=== PATIENT | female | born 1985 | race Caucasian/White ===

== ENCOUNTER 2022-04-16 19:13 | Emergency (ER) | payer MEDICAID ==
[~2022-04-16] VITALS: Ht 165.1 cm; Wt 81.8 kg
[2022-04-16] MEDS ORDERED: IBUPROFEN 600 MG TABLET PO ONE (20:45)
[2022-04-16] MEDS ORDERED: ACETAMINOPHEN 500 MG TABLET PO ONE (20:45)
[2022-04-16 21:29] LABS: COVID AG,FIA SOURCE NASOPHARYNGEAL
[2022-04-16 21:58] LABS: INFLUENZA TYPE A NEGATIVE FOR TYPE A (NEGATIVE); INFLUENZA TYPE B NEGATIVE FOR TYPE B (NEGATIVE)
[2022-04-16 22:00] VITALS: BP 124/65
[2022-04-16] MEDS ORDERED: IBUP-2070 PO (22:48)
[2022-04-16] MEDS ORDERED: ACET-3385 PO (22:49)
== END 2022-04-17 04:36 | disposition home or self-care (01) ==
LOC: EMS 19:21
DX: U07.1 COVID-19 (principal); Z98.890 Other specified postprocedural states
CPT/HCPCS: 87804; 99283

== ENCOUNTER 2023-06-23 19:06 | Emergency (ER) | payer MEDICAID, OTHER ==
[~2023-06-23] VITALS: Ht 157.5 cm; Wt 63.6 kg
[~2023-06-23 19:06] MED LIST: ACET-3385 PO; IBUP-1492 PO
[2023-06-23 19:17] VITALS: TEMP 98.7
[2023-06-23 20:39] LABS: APPEARANCE,URINE HAZY (CLEAR); BILIRUBIN,URINE NEGATIVE (NEGATIVE); GLUCOSE, URINE (UA) NEGATIVE (NEGATIVE); LEUKOCYTE ESTERASE ,URINE LARGE (NEGATIVE); NITRATE,URINE NEGATIVE (NEGATIVE); OCCULT BLOOD,URINE LARGE (NEGATIVE); PROTEIN,URINE 100-200,SEE CONFIRM mg/dL (NEGATIVE); SPECIFIC GRAVITIY, URINE 1.017 (1.003-1.030); UROBILINOGEN,URINE <=1.0 mg/dL (<=1.0)
[2023-06-23 20:56] LABS: BACTERIA,URINE Few /HPF (None Seen); RBC,URINE 51-100 /HPF (0-2); SQUAMOUS EPITHELIAL CELL,UR Few /LPF (None Seen); SULFOSALICYLIC ACID,URINE 3+ (Negative); WBC,URINE 51-100 /HPF (0-5)
[2023-06-23] MEDS ORDERED: CEPH-558 PO (22:14)
[2023-06-23] MEDS ORDERED: LIDOCAINE/PF 1% 2 ML VIAL IM ONE (22:15)
[2023-06-23] MEDS ORDERED: CefTRIAXone SODIUM 1 GM/VIAL IM ONE (22:15)
[2023-06-23 22:29] VITALS: BP 132/87; PULSE 86; RESP 17
== END 2023-06-23 22:38 | disposition home or self-care (01) ==
LOC: EMS 19:07
DX: N39.0 Urinary tract infection, site not specified (principal); Z98.890 Other specified postprocedural states
CPT/HCPCS: 99283; 81001; 87086; 87186; 87491; 87591; 96372; 81002; J0696; J3490

== ENCOUNTER 2023-07-04 21:50 | Emergency (ER) | payer OTHER ==
[~2023-07-04] VITALS: Ht 157.5 cm; Wt 63.6 kg
[~2023-07-04 21:50] MED LIST changes: +CEPH-558 PO
[2023-07-04 21:55] VITALS: BP 134/78; PULSE 98; RESP 18; TEMP 98.2
[2023-07-05] MEDS ORDERED: DiphenhydrAMINE HCL 25 MG CAPSULE PO ONE
[2023-07-05] MEDS ORDERED: PB/HYOSCY/ATR/SCOP/LIDO/MAALOX 55 ML BOTTLE PO ONE
[2023-07-05] MEDS ORDERED: DIPH25TA51 PO (00:04)
== END 2023-07-05 00:19 | disposition home or self-care (01) ==
LOC: EMS 21:51
DX: J39.2 Other diseases of pharynx (principal); Z98.890 Other specified postprocedural states
CPT/HCPCS: 99283

== ENCOUNTER 2024-05-08 07:01 | Emergency (ER) | payer OTHER ==
[~2024-05-08] VITALS: Ht 162.6 cm; Wt 63.6 kg
[~2024-05-08 07:01] MED LIST changes: +DIPH25TA51 PO
[2024-05-08 07:04] VITALS: TEMP 98.1
[2024-05-08 07:22] LABS: COVID AG,FIA SOURCE NASAL SWAB
[2024-05-08 07:49] LABS: SARS-COV2 (COVID) ANTIGEN,FIA Negative (Negative)
[2024-05-08] MEDS: ACETAMINOPHEN 325 MG TABLET PO ONE (07:52)
[2024-05-08 07:57] LABS: INFLUENZA TYPE A NEGATIVE FOR TYPE A (NEGATIVE); INFLUENZA TYPE B NEGATIVE FOR TYPE B (NEGATIVE)
[2024-05-08 08:00] VITALS: BP 120/82; PULSE 60; RESP 14
[2024-05-08 08:05] LABS: RAPID GROUP A STREP NEGATIVE (NEGATIVE)
[2024-05-08] MEDS ORDERED: ACET-3385 PO (08:09)
[2024-05-08] MEDS ORDERED: IBUP-1492 PO (08:09)
[2024-05-08] MEDS ORDERED: ACET-2247 PO (08:11)
== END 2024-05-08 08:43 | disposition home or self-care (01) ==
LOC: EMS 07:02
DX: B34.9 Viral infection, unspecified (principal); J02.9 Acute pharyngitis, unspecified; R05.9 Cough, unspecified; M79.10 Myalgia, unspecified site; Z20.822 Contact with and (suspected) exposure to COVID-19
CPT/HCPCS: 87430; 87804; 99283

== ENCOUNTER 2024-10-10 21:28 | Emergency (ER) | payer OTHER ==
[~2024-10-10] VITALS: Ht 157.5 cm; Wt 63.6 kg
[~2024-10-10 21:28] MED LIST changes: +ACET-2247 PO
[2024-10-10 21:36] VITALS: BP 119/85; PULSE 110; RESP 20; TEMP 98.5; O2SAT 100
[2024-10-10 21:57] LABS: COVID AG,FIA SOURCE NASAL SWAB
[2024-10-10 22:23] LABS: INFLUENZA TYPE A NEGATIVE FOR TYPE A (NEGATIVE); INFLUENZA TYPE B NEGATIVE FOR TYPE B (NEGATIVE)
[2024-10-10 22:35] LABS: SARS-COV2 (COVID) ANTIGEN,FIA Positive (Negative)
[2024-10-10] MEDS ORDERED: NIRM1TAB10 PO (22:51)
[2024-10-10] MEDS: ACETAMINOPHEN 325 MG TABLET PO ONE (22:56)
== END 2024-10-10 23:01 | disposition home or self-care (01) ==
LOC: EMS 21:28
DX: U07.1 COVID-19 (principal); R50.9 Fever, unspecified
CPT/HCPCS: 87804; 99283

== ENCOUNTER 2025-02-04 09:13 | Emergency (ER) | payer OTHER ==
[~2025-02-04] VITALS: Ht 157.5 cm; Wt 63.6 kg
[~2025-02-04 09:13] MED LIST changes: +NIRM1TAB10 PO
[2025-02-04 09:26] VITALS: TEMP 98.7
[2025-02-04] MEDS ORDERED: FAMO20TA8 PO (09:28)
[2025-02-04] MEDS ORDERED: ASPI-1444 PO (09:28)
[2025-02-04 09:49] LABS: BASOPHILS % (AUTO) 0.3 % (0.0-2.0); EOSINOPHILS % (AUTO) 0.9 % (1.0-6.0); HEMATOCRIT 39.8 % (36-46); HEMOGLOBIN 12.8 g/dL (12.0-16.0); LYMPHOCYTES # (AUTO) 1.5 K/uL (1.0-4.8); LYMPHOCYTES % (AUTO) 22.1 % (22.0-44.0); MEAN CORPUSCULAR HEMOGLOBIN 26.5 pg (26.0-34.0); MEAN CORPUSCULAR HGB CONC 32.2 G/dL (31.0-37.0); MEAN CORPUSCULAR VOLUME 82 fL (80-100); MONOCYTES # (AUTO) 0.3 K/uL (0.1-1.0); MONOCYTES % (AUTO) 4.9 % (2.0-9.0); NEUTROPHILS # (AUTO) 4.8 K/uL (1.8-7.7); NEUTROPHILS % (AUTO) 71.8 % (40.0-70.0); PLATELET COUNT (AUTO) 231 K/uL (150-450); RED BLOOD CELL COUNT(AUTO) 4.84 MIL/uL (4.00-5.20); RED CELL DISTRIBUTION WIDTH 15.3 % (11.5-14.5); WHITE BLOOD COUNT (AUTO) 6.6 K/uL (4.5-11.0)
[2025-02-04 09:54] LABS: APPEARANCE,URINE TURBID (CLEAR); BILIRUBIN,URINE NEGATIVE (NEGATIVE); COLOR,URINE YELLOW (YELLOW); GLUCOSE, URINE (UA) NEGATIVE (NEGATIVE); KETONES,URINE NEGATIVE (NEGATIVE); LEUKOCYTE ESTERASE ,URINE LARGE (NEGATIVE); NITRATE,URINE NEGATIVE (NEGATIVE); OCCULT BLOOD,URINE LARGE (NEGATIVE); PH,URINE 5.5 (5.0-8.0); PROTEIN,URINE 100-200,SEE CONFIRM mg/dL (NEGATIVE); SPECIFIC GRAVITIY, URINE 1.016 (1.003-1.030); UROBILINOGEN,URINE <=1.0 mg/dL (<=1.0)
[2025-02-04 09:58] LABS: ANION GAP 7 mmol/L (8-16); CALCIUM, TOTAL 8.8 mg/dL (8.8-10.5); CARBON DIOXIDE 27 mmol/L (22-29); CHLORIDE 103 mmol/L (98-107); CREATININE 0.69 mg/dL (0.60-1.30); GLOMERULAR FILTR. RATE CALC > 60 mL/min (>60); GLUCOSE,RANDOM 104 mg/dL (70-110); POTASSIUM 3.8 mmol/L (3.5-5.1); SODIUM SERUM 137 mmol/L (136-145); UREA NITROGEN, BLOOD 12 mg/dL (7-18)
[2025-02-04 10:01] LABS: SULFOSALICYLIC ACID,URINE 2+ (Negative)
[2025-02-04 10:02] LABS: BACTERIA,URINE Moderate /HPF (None Seen); RBC,URINE 26-50 /HPF (0-2); WBC,URINE 51-100 /HPF (0-5)
[2025-02-04 10:11] LABS: HCG,QUANTITATIVE < 1 mIU/mL (0-6); LIPASE 44 U/L (16-77)
[2025-02-04 11:10] VITALS: BP 117/65; PULSE 78; RESP 18; O2SAT 100
[2025-02-04] MEDS: CefTRIAXone 1 GM/DEXTROSE 50 ML IV ONE (11:13)
[2025-02-04] MEDS: SODIUM CHLORIDE 0.9% 500 ML IV ONE (11:13)
[2025-02-04] MEDS: KETOROLAC TROMETHAMINE 30 MG/ML VIAL IVP ONE (11:14)
[2025-02-04] MEDS ORDERED: CEPH-558 PO (11:37)
[2025-02-04] MEDS ORDERED: IBUP-1492 PO (11:38)
== END 2025-02-04 11:59 | disposition home or self-care (01) ==
LOC: EMS 09:19
DX: N39.0 Urinary tract infection, site not specified (principal); M54.9 Dorsalgia, unspecified; Z79.82 Long term (current) use of aspirin; Z87.440 Personal history of urinary (tract) infections
CPT/HCPCS: 99284; 96365; 96375; 80048; 81001; 83690; 84702; 85025; 87086; 36415; J1885; J0696; J7040; 81002